=== PATIENT | female | born 1985 | race Caucasian/White ===

== ENCOUNTER 2024-12-31 14:23 | Emergency (ER) | payer MEDICAID ==
[~2024-12-31] VITALS: Ht 167.6 cm; Wt 66.8 kg
[2024-12-31 15:42] VITALS: BP 119/60; PULSE 74; RESP 17; TEMP 99.1; O2SAT 99
== END 2024-12-31 15:43 | disposition home or self-care (01) ==
LOC: ER 14:24
DX: S63.502A Unspecified sprain of left wrist, initial encounter (principal); M25.521 Pain in right elbow; W19.XXXA Unspecified fall, initial encounter; Y93.01 Activity, walking, marching and hiking; Y92.89 Other specified places as the place of occurrence of the external cause; Y99.8 Other external cause status
CPT/HCPCS: 29125; 73080; 73090; 73110; 99284

== ENCOUNTER 2025-02-23 22:48 | Emergency (ER) | payer MEDICAID ==
[~2025-02-23] VITALS: Ht 167.6 cm; Wt 55.9 kg
[2025-02-23 23:12] VITALS: BP 133/78; PULSE 104; RESP 15; O2SAT 99
--- NOTE | 2025-02-24 00:04 | Physician Documentation ---
HPI ~ General Chief Complaint: Tooth Problem Stated Complaint: ORAL ABSCESS Time Seen by MD: 23:16 History of Present Illness HPI Comment Patient is seen today with complaints of dental pain and dental pressure and pain in her left upper molars. Patient admits to very poor dentition and multiple dental caries and dental fractures. Patient has no other concern or complaint at this time. She denies any chest pain or shortness of breath or abdominal pain or nausea, vomiting, diarrhea or fevers or chills. She has no other concern or complaint at this time Medication Reconciliation Allergies: Coded Allergies: No Known Allergies (Unverified , 02/23/25) Review of Systems Constitutional: Denies: chills, fever, weakness Eyes: Denies: pain, blurred vision ENT: Denies: ear pain, nose pain, throat pain, mouth pain Respiratory: Denies: cough, shortness of breath Cardiovascular: Denies: chest pain, palpitations Gastrointestinal: Denies: abdominal pain, nausea, vomiting Genitourinary: Denies: burning, dysuria Female Genitalia: Denies: vaginal discharge, pelvic pain Neurological: Denies: headache, dizziness Musculoskeletal: Denies: pain, swelling Integumentary: Denies: rash, lesions Allergic/Immunologic: Denies: hives, itching Hematologic/Lymphatic: Denies: no symptoms reported Psychiatric: Denies: depression, anxiety Physical Exam Vital Signs: Temperature: 96.8, Source: Temporal, Heart Rate: 104, Respiratory Rate: 15, BP: 133/78, Pulse Oximetry: 99, Weight: 55.850 Physical Exam General: Awake and Alert, no acute distress. HEENT: Patient on exam has extremely poor dentition with multiple dental fractures and swelling of her left upper gums above molars. No periapical abscess visualized. Multiple dental fractures and caries. Conjunctiva pink, Sclera clear, Mucus Membranes moist. Neck: Supple without masses and tenderness. Resp: Unlabored. Lungs clear to auscultation bilaterally. Heart: Regular Rate and rhythm, normal S1 and S2 without murmur, rub or gallop. Abdomen: Soft and non tender no organomegaly Extremities: No cyanosis,clubbing or edema. Skin: Warm and Dry. Progress Results/Orders Results/Orders Vital Signs 02/23/25 23:12 Temp 96.8 Pulse 104 Resp 15 B/P (MAP) 133/78 Pulse Ox 99 Medical Decision Making Findings Patient is seen today with complaints of dental pain and dental pressure and pain in her left upper molars. Patient admits to very poor dentition and multiple dental caries and dental fractures. Patient has no other concern or complaint at this time. She denies any chest pain or shortness of breath or abdominal pain or nausea, vomiting, diarrhea or fevers or chills. She has no other concern or complaint at this time Patient was given prescription of amoxicillin a 1000 mg by mouth and ibuprofen 800 mg by mouth in the ED tonight. Prescriptions of amoxicillin and ibuprofen sent to patient's pharmacy to be taken as directed. Patient will return to ED with any worsening, concerning or changing symptoms. Patient will make appointment with the dentist as soon as possible. Departure Disposition: HOME / SELF CARE / HOMELESS Impression: Primary Impression: Toothache Additional Impression: Dental abscess Condition: Improved Discharge Instructions: Dental Abscess Additional Instructions: Patient was given prescription of amoxicillin a 1000 mg by mouth and ibuprofen 800 mg by mouth in the ED tonight. Prescriptions of amoxicillin and ibuprofen sent to patient's pharmacy to be taken as directed. Patient will return to ED with any worsening, concerning or changing symptoms. Patient will make appointment with the dentist as soon as possible. Referrals: NO PRIMARY CARE PROVIDER (PCP) Prescriptions Ibuprofen (Ibuprofen) 800 Mg Tablet 1 TAB PO Q8H for pain for 10 Days, #30 TAB 0 Refills Prov: CUAUHTEMOC GERARDO 02/24/25 Amoxicillin Trihydrate (Amoxicillin) 875 Mg Tablet 1 TAB PO Q12H for 10 Days, #20 TAB Prov: CUAUHTEMOC GERARDO 02/24/25 Signature Scribe Signature: No scribe Attestation: No scribe CUAUHTEMOC GERARDO Feb 24, 2025 00:03
[2025-02-24 00:05] VITALS: TEMP 96.8
[2025-02-24] MEDS ORDERED: AMOX875T10 PO (00:05)
[2025-02-24] MEDS ORDERED: IBUP-1986 PO (00:05)
[2025-02-24] MEDS: ibuprofen tablet 400 MG TABLET PO STA (00:13)
[2025-02-24] MEDS: amoxicillin 250mg capsule PO STA (00:13)
== END 2025-02-24 00:16 | disposition home or self-care (01) ==
LOC: ER 22:49
DX: K04.7 Periapical abscess without sinus (principal)
CPT/HCPCS: 99283